=== PATIENT | female | born 1985 ===

== ENCOUNTER 2018-06-30 12:30 | Emergency (ER) | payer OTHER ==
[2018-06-30] MEDS ORDERED: Sodium Chloride 0.9% 1,000 ML IV STA (12:52)
[2018-06-30 12:57] VITALS: RESP 18; TEMP 98.5; O2SAT 99
--- NOTE | 2018-06-30 12:58 | ED PDOC ---
Arrival/HPI - General Chief Complaint: Back Pain Time Seen by Provider: 06/30/18 12:42 Historian: Patient - History of Present Illness Narrative History of Present Illness (Text): 06/30/18 12:54 33 year old female, with no significant past medical history, presents to the ED for evaluation of 4 day history of intermittent left lower quadrant abdominal pain. Patient reports developing left sided flank pain last night, prompting her to present to the ED for evaluation. Patient noted unable to follow-up with PMD or [employer]ER secondary to lack of insurance. Patient denies any other associated somatic complaints. Patient denies any fevers, chills, headache, dizziness, chest pain, shortness of breath, dyspnea on exertion, cough, nausea, vomiting, diarrhea, back pain, neck pain, vaginal bleeding/discharge, urinary symptoms or any other complaints. 06/30/18 17:10 Time/Duration: < week (4 days) Symptom Onset: Gradual Symptom Course: Unchanged Activities at Onset: Light Context: Home Past Medical History - Provider Review Nursing Documentation Reviewed: Yes - Infectious Disease Hx of Infectious Diseases: None - Reproductive Menopause: No - Psychiatric Hx Substance Use: No - Anesthesia Hx Anesthesia: No Family/Social History - Physician Review Nursing Documentation Reviewed: Yes Family/Social History: No Known Family HX Smoking Status: Unknown If Ever Smoked Hx Alcohol Use: No Hx Substance Use: No Allergies/Home Meds Allergies/Adverse Reactions: Allergies No Known Allergies Allergy (Verified 06/30/18 12:49) Home Medications: Home Meds Medication Instructions Recorded Confirmed No Known Home Med 06/30/18 06/30/18 Review of Systems - Review of Systems Constitutional: absent: Fevers Eyes: absent: Vision Changes Respiratory: absent: SOB, Cough Cardiovascular: absent: Chest Pain Gastrointestinal: Abdominal Pain. absent: Diarrhea, Nausea, Vomiting Genitourinary Female: absent: Dysuria, Frequency, Hematuria, Urine Output Changes, Vaginal Bleeding, Vaginal Discharge Musculoskeletal: absent: Back Pain, Neck Pain Skin: absent: Rash Neurological: absent: Headache, Dizziness, Focal Weakness Endocrine: absent: Diaphoresis Psychiatric: absent: Anxiety Physical Exam Vital Signs Reviewed: Yes Vital Signs Temp Pulse Resp BP Pulse Ox 06/30/18 12:45 98.5 F 72 18 127/80 99 Temperature: Afebrile Blood Pressure: Normal Pulse: Regular Respiratory Rate: Normal Appearance: Positive for: Well-Appearing, Non-Toxic, Comfortable Pain Distress: None Mental Status: Positive for: Alert and Oriented X 3 - Systems Exam Head: Present: Atraumatic, Normocephalic Pupils: Present: PERRL Extroacular Muscles: Present: EOMI Conjunctiva: Present: Normal Respiratory/Chest: Present: Clear to Auscultation, Good Air Exchange. No: Respiratory Distress, Accessory Muscle Use Cardiovascular: Present: Regular Rate and Rhythm, Normal S1, S2. No: Murmurs Abdomen: No: Tenderness, Distention, Peritoneal Signs Back: Present: Normal Inspection. No: CVA Tenderness Upper Extremity: Present: Normal Inspection. No: Cyanosis, Edema Lower Extremity: Present: Normal Inspection. No: Edema Neurological: Present: GCS=15, Speech Normal Skin: Present: Warm, Dry, Normal Color. No: Rashes Psychiatric: Present: Alert, Oriented x 3, Normal Insight, Normal Concentration Medical Decision Making ED Course and Treatment: 06/30/18 12:51 Impression: 33 year old female presents to the ED for evaluation of abdominal pain. Differential Diagnosis included but are not limited to: -- Musculoskeletal pain Plan: -- CT of Abdomen/Pelvis -- Labs -- IV Fluids -- Toradol -- Urinalysis -- Reassess and disposition Prior Visits: Notes and results from previous visits were reviewed. Progress Notes: Labs and ua WNL. 06/30/18 13:59 IMPRESSION: Mild diverticulosis. Mild constipation No acute intra-abdominal findings 06/30/18 14:00 - RAD Interpretation Radiology Orders: 06/30/18 12:51 ABD & PELVIS W/O PO OR IV CONT [CT] Stat - Medication Orders Current Medication Orders: Sodium Chloride (Sodium Chloride 0.9%) 1,000 mls @ 999 mls/hr IV .Q1H1M STA Stop: 06/30/18 13:52 Ketorolac Tromethamine (Toradol) 30 mg IVP STAT STA Stop: 06/30/18 12:53 - Scribe Statement The provider has reviewed the documentation as recorded by the Scribe Maria Esther Alberto. All medical record entries made by the Scribe were at my direction and personally dictated by me. I have reviewed the chart and agree that the record accurately reflects my personal performance of the history, physical exam, medical decision making, and the department course for this patient. I have also personally directed, reviewed, and agree with the discharge instructions and disposition. Disposition/Present on Arrival - Present on Arrival Any Indicators Present on Arrival: No History of DVT/PE: No History of Uncontrolled Diabetes: No Urinary Catheter: No History of Decub. Ulcer: No History Surgical Site Infection Following: None - Disposition Have Diagnosis and Disposition been Completed?: Yes Diagnosis: Diverticulosis, Constipation Disposition: HOME/ ROUTINE Disposition Time: 14:00 Patient Plan: Discharge Condition: GOOD Discharge Instructions (ExitCare): Constipation in Adults, High Fiber Diet, Diverticulosis Additional Instructions: Follow-up with PMD within 2 days. Follow-up with GI for further evaluation. Return to ED if condition worsens. Referrals: PCP,NO [Primary Care Provider] - Follow up with primary Brandon Bowling MD [Medical Doctor] - Follow up with primary Forms: [employer] ([employer])
[2018-06-30 13:19] LABS: BASO # 0.04 K/mm3 (0.0-2.0); BASO % 0.9 % (0.0-3.0); EOS # 0.1 (0.0-0.7); EOS % 1.6 % (1.5-5.0); HEMOGLOBIN 13.8 g/dL (12.0-16.0); LYMPH # 2.1 (1.2-3.4); LYMPH % 48.6 % (22.0-35.0); MEAN CELL VOLUME 93.8 fl (80.0-105.0); MEAN CORPUSCULAR HEMOGLOBIN 30.5 pg (25.0-35.0); MEAN CORPUSCULAR HGB CONC 32.5 g/dl (31.0-37.0); MEAN PLATELET VOLUME 9.7 fl (7.0-11.0); MONO # 0.3 (0.1-0.6); MONO % 6.7 % (1.0-6.0); RBC 4.53 10^6/uL (3.5-6.1); RED CELL DISTRIBUTION WIDTH 12.6 % (11.5-14.5); URINE BILIRUBIN NEGATIVE (NEGATIVE); URINE BLOOD NEGATIVE (NEGATIVE); URINE GLUCOSE (UA) NEGATIVE (NEGATIVE); URINE LEUKOCYTE ESTERASE NEGATIVE Leu/uL (NEGATIVE); URINE PROTEIN NEGATIVE mg/dL (<30 mg/dL); URINE UROBILINOGEN 0.2 E.U./dL (<1 E.U./dL); WHITE BLOOD COUNT 4.3 10^3/uL (4.5-11.0)
[2018-06-30 13:22] LABS: URINE APPEARANCE CLEAR (CLEAR); URINE COLOR YELLOW (YELLOW)
[2018-06-30 13:32] LABS: ALB/GLOB RATIO 1.2 (1.1-1.8); ALBUMIN 4.2 g/dL (3.0-4.8); ALT/SGPT 24 U/L (7-56); AST/SGOT 29 U/L (14-36); BLOOD UREA NITROGEN 13 mg/dL (7-21); CALCIUM 8.9 mg/dL (8.4-10.5); GFR NON-AFRICAN AMERICAN > 60; LIPASE 70 U/L (23-300)
--- NOTE | 2018-06-30 13:58 | CT ---
Date of service: 06/30/2018 PROCEDURE: CT Abdomen and Pelvis without intravenous contrast HISTORY: L flank pain, L sided suprapubic pain COMPARISON: None. TECHNIQUE: Without contrast.. Contrast dose: Radiation dose: Total exam DLP = 833.89 mGy-cm. This CT exam was performed using one or more of the following dose reduction techniques: Automated exposure control, adjustment of the mA and/or kV according to patient size, and/or use of iterative reconstruction technique. FINDINGS: LOWER THORAX: Unremarkable. LIVER: Unremarkable. No gross lesion or ductal dilatation. GALLBLADDER AND BILE DUCTS: Unremarkable. PANCREAS: Unremarkable. No gross lesion or ductal dilatation. SPLEEN: Unremarkable. ADRENALS: Unremarkable. No mass. KIDNEYS AND URETERS: Unremarkable. No hydronephrosis. No solid mass. VASCULATURE: Unremarkable. No aortic aneurysm. No aortic atherosclerotic calcification or mural plaque present. BOWEL: Mild diverticulosis. Mild constipation APPENDIX: Unremarkable. Normal appendix. PERITONEUM: Unremarkable. No free fluid. No free air. LYMPH NODES: Unremarkable. No enlarged lymph nodes. BLADDER: Unremarkable. REPRODUCTIVE: Unremarkable. BONES: No acute fracture. OTHER FINDINGS: None. IMPRESSION: Mild diverticulosis. Mild constipation No acute intra-abdominal findings
[2018-06-30] MEDS ORDERED: Magnesium Citrate Oral SOL (300 ml) PO STA (14:00)
[2018-06-30 14:06] VITALS: BP 117/71; PULSE 61
== END 2018-06-30 14:16 | disposition home or self-care (01) ==
LOC: ED 12:30
DX: K57.90 Diverticulosis of intestine, part unspecified, without perforation or abscess without bleeding (principal); K59.00 Constipation, unspecified
CPT/HCPCS: 74176; 80053; 81003; 81025; 83690; 85025; 87086; 96361; 96374; 99284; J1885; J7030